=== PATIENT | male | born 2000 | race American Indian/Alaskan Native ===

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

== ENCOUNTER 2020-05-13 17:15 | Emergency (ER) | payer OTHER ==
[~2020-05-13] VITALS: Ht 182.9 cm; Wt 145.2 kg
--- OUTSIDE RECORDS SUMMARY | ~2020-05-13 | XMS | Clinical Summary ---
Demographics + + + | Address | [address] | | | [place] [address] | + + + | Home Phone | | + + + | Preferred Language | Unknown | + + + | Marital Status | Single | + + + | Religion Affiliation | Unknown | + + + [...] Team Providers + +------+ + | Care Ball Shagger Name | Role | Phone | + +------+ + PCP | Unavailable | + +------+ + Source Comments JAKE is fully live on both [facility] Ambulatory and [facility] InPatient.[facility] Allergies Not on File Medications Not on [...] on file | | + + + Last Filed Vital Signs Not on file Plan of Treatment + + +-------+ + | Health Maintenance | Due Date | Last | Comments | | | | Done | | + + +-------+ + | Influenza (Flu) | | | | | vaccination (#1) | 0 | | | + + +-------+ + | Pneumococcal | Aged Out | | No longer eligible based on patient's age | | vaccination | | | to complete this topic | + + +-------+ + Results Not on filefrom Last 3 Months"
--- OUTSIDE RECORDS SUMMARY | ~2020-05-13 | XMS | Encounter Summary ---
Demographics + + + | Address | [address] | | | [place] [address] | + + + | Home Phone | | + + + | Preferred Language | Unknown | + + + | Marital Status | Single | + + + | Jewish Affiliation | Unknown | + + + [...] Team Providers + +------+ + | Care Dress Marker Name | Role | Phone | + [...] on file | | + + + documented as of this encounter Progress Notes Interface, Service Order Clerk In - 05/19/2006 1:05 AM [facility] [place] [address] [address] or September 05, 2001 Alicia Caballero M.D. [address] [place] [address] RE:Cosme Crews MR#:[id number] Caballero: Dr. [...] can participate in gesture games such as Haolianluo or clapping. Currently, he is unable to [...] is 30 and healthy. He is a Belgian descent, and early childhood associate teacher medical history is unknown. Cosme' sister is 3 years of age and, per mother, has had no delays. The sister is talkative at home, she is not so in public. The mother stated that the family speaks both Khmer and Cape Verdean in the home. The mother has multiple [...] Shekhar Irizarry M.D. Fellow, Developmental Pediatrics / [id number] / [id number] / [id number] / [id number] C: 09/06/2001 amm documented in this encounter Plan of Treatment Not on filedocumented as of this encounter Visit Diagnoses Not on filedocumented in this encounter
== END 2020-05-13 19:12 | disposition home or self-care (01) ==
LOC: ED 17:15
DX: S06.0X0A Concussion without loss of consciousness, initial encounter (principal); W22.8XXA Striking against or struck by other objects, initial encounter
CPT/HCPCS: 70450; 99284-25

== ENCOUNTER 2022-05-13 18:15 | Emergency (ER) | payer OTHER ==
[~2022-05-13] VITALS: Ht 182.9 cm; Wt 163.3 kg
[2022-05-13] MEDS ORDERED: AMOX TR-K CLV1 EAC1 PO (19:38)
== END 2022-05-13 20:11 | disposition home or self-care (01) ==
LOC: ED 18:15
DX: S31.139A Puncture wound of abdominal wall without foreign body, unspecified quadrant without penetration into peritoneal cavity, initial encounter (principal); S21.232A Puncture wound without foreign body of left back wall of thorax without penetration into thoracic cavity, initial encounter; Y04.8XXA Assault by other bodily force, initial encounter; Z23 Encounter for immunization
CPT/HCPCS: 90471; 90715; 99283-25

== ENCOUNTER 2025-03-01 09:24 | Emergency (ER) | payer OTHER ==
[~2025-03-01] VITALS: Ht 182.9 cm; Wt 138.2 kg
[~2025-03-01 09:24] MED LIST: AMOX TR-K CLV1 EAC1 PO
[2025-03-01] MEDS ORDERED: NITROGLYCERIN 0.4 MG SUBL SL PRN (09:30)
[2025-03-01] MEDS ORDERED: ASPIRIN 81 MG CHEW PO ONE (09:30)
[2025-03-01 09:42] LABS: BASOPHILS 0.3 % (0.2-1.2); EOSINOPHILS 1.3 % (0.8-7.0); LYMPHOCYTES 22.7 % (21.8-53.1); MCH 26.8 PG (25.7-32.2); MCHC 32.6 g/dL (32.3-36.5); MCV 82.3 fL (79.0-92.2); MONOCYTES 5.3 % (5.3-12.2); NEUTROPHILS 69.9 % (34.0-67.9); RBC 5.70 M/uL (4.63-6.08)
[2025-03-01 10:00] LABS: ALT (SGPT) 28 U/L (14-59); AST (SGOT) 15 U/L (15-37); GLOMERULAR FILTRATION RATE,EST 131 mL/min (>60); PROTEIN, TOTAL 8.6 g/dL (6.4-8.2); UREA NITROGEN 12 mg/dL (7-18)
[2025-03-01 10:21] VITALS: BP 132/81
--- NOTE | 2025-03-02 11:42 | EKG ---
[facility] [address] [facility] [place] [address] Signed Normal sinus rhythm Normal ECG When compared with ECG of 07-Sep-2019 18:11:16 No significant change was found Confirmed by Rocky Ling MD ([id number]) on 03/02/2025 11:42:45 AM Electronically Signed By: ROCKY LING MD 03/02/25 1142 PATIENT NAME: MALISSA LENTZ Electrocardiogram DATE OF : 00 PHYSICIAN: ROCKY LING MD REPORT #: [id number] REPORT IS CONFIDENTIAL AND NOT TO BE RELEASED WITHOUT AUTHORIZATION
== END 2025-03-01 10:21 | disposition home or self-care (01) ==
LOC: ED 09:24
PROVIDERS: Emergency Medicine
DX: R07.2 Precordial pain (principal)
CPT/HCPCS: 36415; 71045; 80053; 83735; 84484; 85025; 93005; 93010; 99285-25; A9270